=== PATIENT | male | born 1955 | race African-American/Black ===

== ENCOUNTER 2019-07-14 11:53 | Day surgery (SDC) | payer MEDICARE, MEDICAID ==
--- NOTE | 2019-07-13 11:00 | HP ---
HISTORY OF PRESENT ILLNESS: Chaitanya Hsu is a 63-year-old black male patient, dialyzes Saturday, Saturday, and Saturday at [facility], followed by Dr. Andrews Richmond. He is on Coumadin for atrial fibrillation. He had a coronary artery bypass grafting in 2016 at [facility], follows with Dr. Gramajo, sees him twice a year , has an appointment upcoming. 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 He had this Juan Diego fistula established 25 years ago in [place]. On February 2016, I revised his arterial inflow for malfunction of his fistula, this has served him well. He has not had any interventions performed. The plan is to repair 3 aneurysmal dilatations of the mid forearm fistula. He has enough fistula distally and proximally to access to allow this to heal for 3 to 4 weeks postoperatively before the access to begin. MEDICATIONS: 1. Coumadin. 2. Aspirin. 3. Doxepin. 4. Gabapentin. 5. Tums. PAST MEDICAL HISTORY: End-stage renal disease, on maintenance dialysis; coronary artery disease, status post coronary artery bypass grafting. PAST SURGICAL HISTORY: Left Juan Diego fistula 25 years ago in [place], arterial inflow revision that I performed in 2015, coronary artery bypass grafting in 2016, followed by Dr. Gramajo. SOCIAL HISTORY: Tobacco and alcohol, none. ALLERGIES: NONE. PHYSICAL EXAMINATION: VITAL SIGNS: Weight 330 pounds, height 69 inches. Blood pressure 122/61, pulse 52, temperature 97.9 degrees. HEAD, EARS, EYES, NOSE AND THROAT: Unremarkable. LUNGS: Clear to auscultation. CARDIAC: Irregularly irregular. ABDOMEN: Soft, obese, and nontender. ASSESSMENT AND PLAN: 1. Left arm Juan Diego fistula, arterial inflow wrist, radial artery with 3 aneurysmal dilatations mid forearm. He has enough fistula proximally and distally to access and could even access his distal upper arm segment of cephalic vein fistula. He understands risks and benefits and consents. 2. On Coumadin. Hold Coumadin 5 days preoperatively. Check PT, INR in the morning. We will plan under regional anesthesia and TIVA for revision of left arm fistula. Job ID: [id number]
[2019-07-13 13:08] VITALS: BMI 49.4
[~2019-07-14 11:53] MED LIST: Ropivacaine 0.2% HCl/PF (40 MG/20 ML VIAL) ONE; Ropivacaine 0.5% HCl/PF (150 MG/30 ML VIAL) ONE
[2019-07-14 13:24] LABS: Hemoglobin 14.8 g/dL (14.0-18.0); Mean Corpuscular HGB CONC 30.4 g/dL (32.0-36.0); Mean Corpuscular Hemoglobin 27.1 pg (27.0-31.0); Mean Corpuscular Volume 89.1 fL (78.0-98.0); Mean Platelet Volume 9.5 fL (7.4-10.4); Platelet Count 170 thou/uL (130-400); RBC Distribution Width 15.9 % (11.5-14.5); Red Blood Cell (RBC) Count 5.48 mill/uL (4.70-6.10)
[2019-07-14 13:27] LABS: INR-International Normal Ratio 1.1; Prothrombin Time 14.4 SEC (12.0-14.7)
[2019-07-14 13:42] LABS: Anion Gap 17 mmol/L (10-20); BUN (Urea Nitrogen) 41 mg/dL (8.4-25.7); Calc. Creatinine Clearance 16 mL/min (70-130); Calcium 7.9 mg/dL (7.8-10.44); Carbon Dioxide 26 mmol/L (23-31); Chloride 102 mmol/L (98-107); Estimated GFR-MDRD 6; Glucose 83 mg/dL (80-115); Potassium 5.9 mmol/L (3.5-5.1); Sodium 139 mmol/L (136-145)
[2019-07-14 13:55] LABS: Band 9 % (5-11); Eosinophils 2 % (0-10); Hypochromia SLIGHT = 6-15 cells (100X) (0-5/hpf); Lymphocytes 25 % (21-51); MDiff Complete? YES; Monocytes 14 % (0-10); Neutrophil 46 % (42-75); Platelet Morphology Comment Appears Adequate; Polychromasia SLIGHT = 2-3 cells (100X) (0-2/hpf); Reactive Lymphocytes 4 % (0-10); Schistocytes SLIGHT = 2-5 cells (100X) (0-1/hpf); Tear Drops SLIGHT = 2-5 cells (100X) (0-1/hpf)
[2019-07-14] MEDS ORDERED: Protamine Sulfate 50 MG/5 ML VIAL ONE (14:48)
[2019-07-14] MEDS ORDERED: Ioversol 68 % 50 ML VIAL ONE (14:48)
[2019-07-14] MEDS ORDERED: Lidocaine 1% w/Epinephrine 1:100K 20 ML VIAL ONE (14:48)
[2019-07-14] MEDS ORDERED: Bupivacaine PF 0.5% 30 ML VIAL ONE (14:48)
[2019-07-14] MEDS ORDERED: Heparin 5,000 UNITS/ML VIAL ONE (14:48)
[2019-07-14] MEDS ORDERED: Fentanyl 100 MCG/2 ML VIAL ONE (15:20)
--- NOTE | 2019-07-14 18:40 | OP ---
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 PROCEDURE PERFORMED: Repair of three separate aneurysms of left forearm fistula with transposition of fistula due to elongation. ANESTHESIA: Regional, TIVA. ESTIMATED BLOOD LOSS: 150 mL. DESCRIPTION OF PROCEDURE: The patient was taken to the operating room, where under regional anesthesia and intravenous sedation, left upper extremity was prepared with ChloraPrep in routine fashion. The patient had three aneurysms dilatations consecutive in the mid forearm. An elliptical incision was made to incise redundant ellipse of skin overlying these and these three separate aneurysms were dissected free from the skin and subcutaneous tissue. The patient was given 6000 units of heparin intravenously. After adequate circulation time, the fistula was clamped proximally and distally and each of the three aneurysms repaired individually, each resecting ellipse of aneurysmal wall and closing it with a 4-0 Prolene plication suture. After all three aneurysms were repaired and fistula was more redundant, could not be accommodated in the same bed, requiring transposition. The subcutaneous flap was created laterally and dissected free and fistula moved more laterally to accommodate the elongation. The patient was given 25 mg of protamine. Surgicel placed in the harvest bed. Hemostasis obtained with cautery. Subcutaneous tissue was approximated with 3-0 Monocryl, skin with subdermal 4-0 Monocryl, and [place] glue applied. Job ID: [id number]
--- NOTE | 2019-07-14 22:59 | EKG ---
Test Reason : PREOP Blood Pressure : / mmHG Vent. Rate : 063 BPM Atrial Rate : 085 BPM P-R Int : 000 ms QRS Dur : 074 ms QT Int : 410 ms P-R-T Axes : 000 045 071 degrees QTc Int : 419 ms Undetermined rhythm Low voltage QRS Cannot rule out Anteroseptal infarct (cited on or before 22-NOV-2003) Abnormal ECG When compared with ECG of 29-OCT-2016 13:24, Current undetermined rhythm precludes rhythm comparison, needs review Confirmed by YOLANDA HAIDER, DR. Ornelas ([id number]) on 07/14/2019 10:59:02 PM Referred By: YA Confirmed By:DR. Johnson GUERRERO MD
== END 2019-07-14 19:00 | disposition home or self-care (01) ==
LOC: SDC 11:53
PROVIDERS: ATTEND Specialist
PROC: 03WY07Z Revision of Autologous Tissue Substitute in Upper Artery, Open Approach (ICD-10-PCS; principal; 2019-07-14)
DX: T82.898A Other specified complication of vascular prosthetic devices, implants and grafts, initial encounter (principal); N18.6 End stage renal disease; I48.91 Unspecified atrial fibrillation; I25.10 Atherosclerotic heart disease of native coronary artery without angina pectoris; E89.2 Postprocedural hypoparathyroidism; E66.01 Morbid (severe) obesity due to excess calories; Z68.43 Body mass index [BMI] 50.0-59.9, adult; Z79.01 Long term (current) use of anticoagulants; Z79.899 Other long term (current) drug therapy; Z88.5 Allergy status to narcotic agent; Z88.8 Allergy status to other drugs, medicaments and biological substances; Z95.1 Presence of aortocoronary bypass graft; Z99.2 Dependence on renal dialysis
CPT/HCPCS: 36415; 80048; 85025; 85610; 85730; 93005; 93010; J0690; J1644; J2720; J2795; J3010; Q9967; S0020

== ENCOUNTER → 2020-01-11 | Day surgery (SDC) | payer MEDICARE, MEDICAID ==
[2020-01-08 12:43] VITALS: BMI 50.2
== END ==
LOC: SPEC 06:50
PROVIDERS: ATTEND Internal Medicine Nephrology
DX: I87.8 Other specified disorders of veins (principal); Z53.9 Procedure and treatment not carried out, unspecified reason; I13.2 Hypertensive heart and chronic kidney disease with heart failure and with stage 5 chronic kidney disease, or end stage renal disease; I50.9 Heart failure, unspecified; N18.6 End stage renal disease; Z88.5 Allergy status to narcotic agent; Z88.6 Allergy status to analgesic agent

== ENCOUNTER 2022-02-22 08:30 | Outpatient (CLI) | payer MEDICARE, MEDICAID ==
[2022-02-22 10:23] LABS: Hemoglobin 16.1 g/dL (13.5-17.5); Mean Corpuscular HGB CONC 31.4 g/dL (32.0-36.0); Mean Corpuscular Hemoglobin 29.4 pg (27.0-33.0); Mean Corpuscular Volume 93.6 fl (81.2-95.1); Mean Platelet Volume 10.6 fl (7.4-10.4); Platelet Count 189 10x3/uL (150-450); RBC Distribution Width 15.9 % (11.5-14.5); Red Blood Cell (RBC) Count 5.48 10x6/uL (4.32-5.72); White Blood Cell (WBC) Count 4.3 10x3/uL (3.5-10.5)
[2022-02-22 10:31] LABS: MDiff Complete? YES; Manual Diff?? YES
[2022-02-22 10:43] LABS: INR-International Normal Ratio 2.2; PTT 42.1 sec (22.0-33.0); Prothrombin Time 22.4 sec (9.5-12.1)
[2022-02-22 10:50] LABS: Anion Gap 17 mmol/L (10-20); BUN (Urea Nitrogen) 25 mg/dL (8.4-25.7); Calc. Creatinine Clearance 0 mL/min (70-130); Calcium 7.5 mg/dL (7.8-10.44); Carbon Dioxide 25 mmol/L (23-31); Chloride 100 mmol/L (98-107); Estimated GFR 6; Glucose 63 mg/dL (80-115); Potassium 4.7 mmol/L (3.5-5.1); Sodium 137 mmol/L (136-145)
[2022-02-22 10:56] LABS: Eosinophils 3 % (0-10); Lymphocytes 13 % (21-51); Monocytes 21 % (0-10); Neutrophil 54 % (42-75); Reactive Lymphocytes 6 % (0-10)
[2022-02-22 10:57] LABS: Anisocytosis SLIGHT = 6-15 cells (100X) (0-5/hpf); Macrocytosis SLIGHT = 6-15 cells (100X) (0-5/hpf); Microcytosis SLIGHT = 6-15 cells (100X) (0-5/hpf); Platelet Morphology Comment Appears Adequate
== END 2022-02-22 08:31 | disposition home or self-care (01) ==
LOC: LABBT 08:30
PROVIDERS: ATTEND Orthopaedic Surgery Hand Surgery
DX: Z01.818 Encounter for other preprocedural examination (principal); G56.02 Carpal tunnel syndrome, left upper limb
CPT/HCPCS: 80048; 85025; 85610; 85730; 93005; 93010

== ENCOUNTER 2022-02-27 05:36 | Day surgery (SDC) | payer OTHER, MEDICAID ==
[2022-02-23 14:28] VITALS: BMI 34.2
[2022-02-27] MEDS ORDERED: Bupivacaine PF 0.5% 30 ML VIAL ONE (06:11)
[2022-02-27] MEDS ORDERED: Betamet Acet/Betamet Na Ph 30 MG/5 ML VIAL ONE (06:11)
[2022-02-27] MEDS ORDERED: Neomycin-Polymyxin 1 ML AMP ONE (06:12)
[2022-02-27] MEDS ORDERED: Bacitracin Zinc Ointment 30 gm TUBE ONE (06:12)
[2022-02-27] MEDS ORDERED: Lidocaine 2% 6 ML SYR ONE (06:52)
[2022-02-27] MEDS ORDERED: fentaNYL Citrate/PF 100 MCG/2 ML SYRINGE ONE (06:52)
[2022-02-27 07:02] LABS: INR-International Normal Ratio 1.1; PTT 35.3 sec (22.9-36.1); Prothrombin Time 14.7 sec (12.0-14.7)
[2022-02-27] MEDS ORDERED: CEFAZOLIN 2 GM VIAL ONE (07:03)
[2022-02-27] MEDS ORDERED: Sodium Chloride 0.9% 100 ML ONE (07:03)
[2022-02-27 07:08] LABS: Anion Gap 16 mmol/L (10-20); BUN (Urea Nitrogen) 29 mg/dL (8.4-25.7); Calc. Creatinine Clearance 14 mL/min (70-130); Carbon Dioxide 24 mmol/L (23-31); Chloride 100 mmol/L (98-107); Estimated GFR 6; Glucose 87 mg/dL (80-115); Potassium 4.9 mmol/L (3.5-5.1); Sodium 135 mmol/L (136-145)
[2022-02-27] MEDS ORDERED: ePHEDrine 50 MG/ML VIAL ONE (07:12)
[2022-02-27] MEDS ORDERED: Glycopyrrolate 0.2 MG/ML 5 ML SYRINGE ONE (07:12)
[2022-02-27] MEDS ORDERED: Ondansetron PF 4 MG/2 ML Vial ONE (07:12)
[2022-02-27] MEDS ORDERED: PHENYLEPHRINE-NS 100 MCG/ML 10 ML SYRINGE ONE (07:12)
[2022-02-27 07:30] LABS: Hemoglobin 16.7 g/dL (14.0-18.0); Mean Corpuscular HGB CONC 31.1 g/dL (32.0-36.0); Mean Corpuscular Hemoglobin 30.5 pg (27.0-31.0); Platelet Count 160 thou/uL (130-400); RBC Distribution Width 15.8 % (11.5-14.5); Red Blood Cell (RBC) Count 5.47 mill/uL (4.70-6.10); White Blood Cell (WBC) Count 5.5 thou/uL (4.8-10.8)
[2022-02-27 08:11] LABS: Eosinophils 2 % (0-10); Hypochromia SLIGHT = 6-15 cells (100X) (0-5/hpf); Lymphocytes 27 % (21-51); MDiff Complete? YES; Monocytes 15 % (0-10); Neutrophil 55 % (42-75); Platelet Morphology Comment Appears Adequate; Polychromasia SLIGHT = 2-3 cells (100X) (0-2/hpf)
== END 2022-02-27 10:10 | disposition home or self-care (01) ==
LOC: SDC 05:36
PROVIDERS: ATTEND Orthopaedic Surgery Hand Surgery
PROC: 01N40ZZ Release Ulnar Nerve, Open Approach (ICD-10-PCS; principal; 2022-02-27)
PROC: 01N50ZZ Release Median Nerve, Open Approach (ICD-10-PCS; 2022-02-27)
DX: G56.23 Lesion of ulnar nerve, bilateral upper limbs (principal); G56.03 Carpal tunnel syndrome, bilateral upper limbs; N18.6 End stage renal disease; I25.10 Atherosclerotic heart disease of native coronary artery without angina pectoris; E89.2 Postprocedural hypoparathyroidism; Z79.01 Long term (current) use of anticoagulants; Z79.82 Long term (current) use of aspirin; Z79.899 Other long term (current) drug therapy; Z88.5 Allergy status to narcotic agent; Z88.6 Allergy status to analgesic agent; Z95.1 Presence of aortocoronary bypass graft; Z99.2 Dependence on renal dialysis
CPT/HCPCS: 36415; 80048; 85025; 85610; 85730; J0702; J3490; S0020